=== PATIENT | female | born 1975 | race African-American/Black ===

== ENCOUNTER 2017-12-13 23:20 | Emergency (ER) | payer BC | END 2017-12-14 01:38 | disposition home or self-care (01) | LOC: FTE 23:20 | DX: Z76.0 Encounter for issue of repeat prescription (principal) | CPT/HCPCS: 99281 ==

== ENCOUNTER 2018-02-08 04:19 | Emergency (ER) | payer BC | END 2018-02-08 05:25 | disposition home or self-care (01) | LOC: FTE 04:19 | DX: J02.9 Acute pharyngitis, unspecified (principal) | CPT/HCPCS: 99283 ==

== ENCOUNTER 2018-03-16 20:59 | Emergency (ER) | payer BC ==
[2018-03-16] MEDS: DIPHENHYDRAMINE 25 MG CAP PO (22:10)
[2018-03-16] MEDS: FAMOTIDINE 20 MG TAB PO (22:10)
[2018-03-16] MEDS: METHYLPREDNISOLONE 125 MG INJ IM (22:10)
== END 2018-03-16 22:41 | disposition home or self-care (01) ==
LOC: FTE 20:59
DX: S80.861A Insect bite (nonvenomous), right lower leg, initial encounter (principal); S80.862A Insect bite (nonvenomous), left lower leg, initial encounter; W57.XXXA Bitten or stung by nonvenomous insect and other nonvenomous arthropods, initial encounter; Y92.9 Unspecified place or not applicable
CPT/HCPCS: 96372; 99284-25

== ENCOUNTER 2018-03-22 00:57 | Emergency (ER) | payer BC ==
[2018-03-22] MEDS: DIPHENHYDRAMINE 50 MG INJ IM (02:39)
== END 2018-03-22 02:47 | disposition home or self-care (01) ==
LOC: FTE 00:57
DX: T14.8XXA Other injury of unspecified body region, initial encounter (principal); L08.9 Local infection of the skin and subcutaneous tissue, unspecified; W57.XXXA Bitten or stung by nonvenomous insect and other nonvenomous arthropods, initial encounter; Y92.9 Unspecified place or not applicable
CPT/HCPCS: 96372; 99284-25

== ENCOUNTER 2018-04-02 20:17 | Emergency (ER) | payer BC | END 2018-04-02 21:15 | disposition home or self-care (01) | LOC: FTE 20:17 | DX: S80.861A Insect bite (nonvenomous), right lower leg, initial encounter (principal); L81.9 Disorder of pigmentation, unspecified; S80.862A Insect bite (nonvenomous), left lower leg, initial encounter; W57.XXXA Bitten or stung by nonvenomous insect and other nonvenomous arthropods, initial encounter; Y92.9 Unspecified place or not applicable | CPT/HCPCS: 99283 ==

== ENCOUNTER 2019-04-17 21:40 | Emergency (ER) | payer BC | END 2019-04-18 00:35 | disposition home or self-care (01) | LOC: FTE 04-18 00:35 | DX: T14.8XXA Other injury of unspecified body region, initial encounter (principal); W57.XXXA Bitten or stung by nonvenomous insect and other nonvenomous arthropods, initial encounter; Y92.89 Other specified places as the place of occurrence of the external cause | CPT/HCPCS: 99283 ==